=== PATIENT | male | born 1995 | race Caucasian/White ===

== ENCOUNTER 2024-11-10 11:40 | Outpatient (CLI) | payer BC ==
[2024-11-10 12:13] LABS: LEUKOCYTE ESTERASE ,URINE NEGATIVE (Neg); NITRITES, URINE NEGATIVE (Neg); OCCULT BLOOD,URINE NEGATIVE (Neg)
[2024-11-10 12:15] LABS: MEAN PLATELET VOLUME 6.9 FL (7.4-10.4); RED CELL DISTRIBUTION WIDTH 13.5 % (11.5-14.5)
[2024-11-10 12:18] LABS: UA COLLECTION TYPE NON-SPECIFIED
[2024-11-10 12:19] LABS: MUCUS STRANDS MODERATE /LPF (Neg); SQUAMOUS EPITHELIAL CELL,UR FEW /LPF (FEW)
[2024-11-10 12:20] LABS: AMORPHOUS PHOSPHATES 2+
[2024-11-10 13:32] LABS: CHOL/HDL RATIO 2.9 (0.00-4.99); CREATININE 1.26 MG/DL (0.60-1.10); LDL CHOLESTEROL 87 MG/DL (50-100); TOTAL CARBON DIOXIDE 29.6 MMOL/L (24-32); eGFR 68 ML/MIN
== END 2024-11-10 23:59 | disposition home or self-care (01) ==
LOC: RAD 11:40
PROVIDERS: ATTEND Nurse Practitioner Family
DX: R35.1 Nocturia (principal); Z00.01 Encounter for general adult medical examination with abnormal findings; Z13.220 Encounter for screening for lipoid disorders; Z13.29 Encounter for screening for other suspected endocrine disorder
CPT/HCPCS: 36415; 80053; 80061; 81001; 84153; 84439; 84443; 85025